=== PATIENT | female | born 1980 | race Caucasian/White ===

== ENCOUNTER 2021-12-07 12:41 | Emergency (ER) | payer OTHER | END 2021-12-07 14:37 | disposition home or self-care (01) | LOC: ER1 12:41 → EROP 12:41 → ER1 12:41 → EDSTATUS 13:18 → ER1 14:37 | DX: S93.401A Sprain of unspecified ligament of right ankle, initial encounter (principal); X50.1XXA Overexertion from prolonged static or awkward postures, initial encounter; Y92.009 Unspecified place in unspecified non-institutional (private) residence as the place of occurrence of the external cause; W16.92XA Jumping or diving into unspecified water causing other injury, initial encounter | CPT/HCPCS: 36415; 73610; 99283 ==

== ENCOUNTER → 2022-01-18 | Outpatient (CLI) | payer OTHER | LOC: KOH-I 14:03 | DX: M25.571 Pain in right ankle and joints of right foot (principal) | CPT/HCPCS: 73610 ==